=== PATIENT | male | born 1965 | race Caucasian/White ===

== ENCOUNTER 2017-08-25 17:15 | Inpatient (IN) | payer OTHER, SELFPAY ==
[2017-08-25] MEDS ORDERED: Pantoprazole 40 MG VIAL ONE (17:43)
[2017-08-25 17:49] LABS: #Basophils 0.1 thou/uL (0.0-0.2); #Eosinphils 0.1 thou/uL (0.0-0.7); #Lymphocytes 2.8 thou/uL (1.20-3.40); #Monocytes 0.6 thou/uL (0.11-0.59); #Neutrophils 5.7 thou/uL (1.40-6.50); %Basophils 0.9 % (0.0-1.0); %Eosinophils 1.5 % (0.0-10.0); %Lymphocytes 29.7 % (21.0-51.0); %Monocytes 6.6 % (0.0-10.0); %Neutrophils 61.3 % (42.0-75.0); Hemoglobin 9.5 g/dL (14.0-18.0); Mean Corpuscular HGB CONC 34.5 g/dL (32.0-36.0); Mean Corpuscular Hemoglobin 30.3 pg (27.0-31.0); Mean Corpuscular Volume 87.8 fL (78.0-98.0); Mean Platelet Volume 8.1 fL (7.4-10.4); Platelet Count 217 thou/uL (130-400); RBC Distribution Width 12.3 % (11.5-14.5); Red Blood Cell (RBC) Count 3.15 mill/uL (4.70-6.10); White Blood Cell (WBC) Count 9.3 thou/uL (4.8-10.8)
[2017-08-25 17:55] LABS: PTT 28.4 SEC (22.9-36.1); Prothrombin Time 13.4 SEC (12.0-14.7)
[2017-08-25 18:00] LABS: ALT (SGPT) 7 U/L (8-55); AST (SGOT) 10 U/L (5-34); Albumin 3.7 g/dL (3.5-5.0); Alkaline Phosphatase 95 U/L (40-150); Anion Gap 13 mmol/L (10-20); BUN (Urea Nitrogen) 14 mg/dL (8.4-25.7); Bilirubin, Total 0.3 mg/dL (0.2-1.2); Calc. Creatinine Clearance 0 mL/min (70-130); Carbon Dioxide 24 mmol/L (22-29); Chloride 105 mmol/L (98-107); Estimated GFR-MDRD Greater than 90; Globulin 2.4 g/dL (2.4-3.5); Glucose 106 mg/dL (70-105); Potassium 3.7 mmol/L (3.5-5.1); Protein, Total 6.1 g/dL (6.0-8.3); Sodium 138 mmol/L (136-145)
[2017-08-25] MEDS ORDERED: Morphine 4 MG/ML Carpuject ONE (18:45)
[2017-08-25] MEDS ORDERED: Ondansetron HCl/PF 4 MG/2 ML Vial ONE (18:45)
--- NOTE | 2017-08-25 19:18 | RAD ---
ACUTE ABDOMINAL SERIES: 08/25/17 INDICATION: Abdominal pain. IMPRESSION: No acute cardiopulmonary abnormality is evident. No pneumoperitoneum is evident. No obstruction is no mari. There is a mild amount of retained stool. There is scattered degenerative change. COMMENTS: The exam is compared to a prior dated 01/12/06. Bowel gas pattern is nonspecific without overt evidence of obstruction. There is mild amount of retai riley stool predominantly within the right hemicolon. No suspicious calcifications are evident. The car diomediastinal silhouette is normal appearing. No pleural effusion, pneumothorax is evident. No pneum operitoneum is demonstrated. POS: [facility]
[2017-08-25 21:53] LABS: Hemoglobin 8.7 g/dL (14.0-18.0)
[2017-08-25] MEDS ORDERED: Dextrose 5 %-0.45 % NaCl 1,000 ML IV SCH (23:11)
[2017-08-25] MEDS ORDERED: Ondansetron HCl/PF 4 MG/2 ML Vial IVP PRN ×2 (23:11→23:55)
[2017-08-25] MEDS ORDERED: Pantoprazole 80 MG, Admixture Fee 1 EACH in Sodium Chloride 0.9% 100 ML IVP SCH (23:15)
--- NOTE | 2017-08-25 23:51 | PDOC.EVN ---
Event Note - Event Note Event Note: In review of the patients records he had a CT scan of the Chest Dissection protocol which demonstrated a nodule in the right and left fissure of the lungs. I informed him of this finding, and that he should have a follow-up CT scan of the chest.
[2017-08-25] MEDS ORDERED: hydrALAZINE 20 MG/ML VIAL SLOW IVP PRN (23:55)
[2017-08-26] MEDS: Dextrose 5 %-0.45 % NaCl 1,000 ML IV SCH ×3 (00:19→19:50)
[2017-08-26] MEDS: Pantoprazole 80 MG in Sodium Chloride 0.9% 100 ML IVP SCH ×3 (00:41→20:41)
--- NOTE | 2017-08-26 05:17 | HP ---
PRIMARY CARE PHYSICIAN: The patient does not have a primary care physician. CHIEF COMPLAINT: Abdominal pain and vomiting. HISTORY OF PRESENT ILLNESS: Mr. Lazcano is a pleasant 52-year-old gentleman that has a history of cor onary artery disease and hypertension. He was in his usual state of health until a few days ago, he says he was picking up some heavy stuff and got extremely hot and felt extremely tired. He says he t hought he should try to eat something to see if this would make him feel better. He says he believes he ate something that did not agree with him and then shortly after eating, he started getting sever e abdominal cramping and pain and then started to throw up some dark black looking stuff then he also started having diarrhea, which he says was dark and tarry looking. He says that the pain was crampi ng. It was surrounding his abdomen going all the way around his side. He says it felt like somebody was wrapping him around his spine and ripping apart. He said the pain was constant and he also star mari feeling dizzy and lightheaded and for this reason, he came to the emergency room for evaluation. In the ER, he was found to be guaiac positive and he also had a hemoglobin which was lower than his normal. For this reason, he is being admitted for further evaluation. The patient does admit that glenda lorenzana has been taking quite a few BC powders several times a day for pain. Otherwise, he is not on any o ther medications. He says he has a history of heart disease, but he says he lost a lot of weight and as a result, he was "taken off all other medications." REVIEW OF SYSTEMS: All systems were reviewed and negative except for that mentioned in the history o f present illness. PAST MEDICAL HISTORY: Significant for coronary artery disease, hypertension, gastroesophageal reflux disease, hyperlipidemia, and depression. PAST SURGICAL HISTORY: He had a right total knee replacement and a coronary stent placed. ALLERGIES: No known drug allergies. SOCIAL HISTORY: He is , has 3 children. He works as a sand plaster. He smokes about a pack a day for 10 years. Denies any alcohol use. FAMILY HISTORY: Significant for heart disease in his father. Mother had kidney failure. CURRENT MEDICATIONS: Include BC powder. PHYSICAL EXAMINATION: GENERAL: He is alert and oriented. He appears to be in no acute distress. He is well developed and well nourished. VITAL SIGNS: Blood pressure was 140/76, heart rate 83, respiratory rate of 18, temperature 97.8, O2 sat was 99% on room air. HEENT: Pupils are equal, round, and reactive. Extraocular muscles are intact. Sclerae are anicteri c. Throat, no erythema, no exudates. NECK: No adenopathy, no bruits. LUNGS: Clear to auscultation. There is no wheezing, no rales. CARDIOVASCULAR: He has a normal S1, S2. There is no S3 or S4. No murmurs, clicks, no rubs. ABDOMEN: Soft. He has got some mild diffuse tenderness primarily in the mid abdomen. There was no rebound, no guarding, no organomegaly. EXTREMITIES: There is no clubbing, cyanosis, no edema. NEUROLOGIC: Nonfocal with no muscle weakness. SKIN AND INTEGUMENT: There are no skin changes. No rash. LABORATORY RESULTS: White blood cell count 9.3, hemoglobin 9.5, hematocrit is 27.7, platelet count i s 217. INR is 1.0. Chemistry: Sodium 138, potassium 3.7, chloride is 105, CO2 is 24, BUN of 14, cr eatinine 0.8, glucose is 106. Lipase was 14. He had an abdominal series in the ER showing nonspecif ic bowel gas pattern with no evidence of obstruction. ASSESSMENT AND PLAN: This is a pleasant 52-year-old gentleman who presents to the emergency room wit h severe abdominal pain. He had vomiting of blood as well as some dark stools. This is all concerni ng for an upper GI bleed. He may also have an acute blood loss anemia as well. He will be admitted and started on IV Protonix drip as well as some IV fluid resuscitation. Antiemetics as needed. He w ill be left n.p.o. after midnight and we will consult Gastroenterology for further recommendations. Currently, his vital signs are stable.
[2017-08-26 05:46] LABS: #Eosinphils 0.2 thou/uL (0.0-0.7); #Lymphocytes 2.9 thou/uL (1.20-3.40); #Monocytes 0.4 thou/uL (0.11-0.59); #Neutrophils 3.1 thou/uL (1.40-6.50); %Basophils 0.7 % (0.0-1.0); %Eosinophils 2.8 % (0.0-10.0); %Lymphocytes 43.5 % (21.0-51.0); %Monocytes 6.3 % (0.0-10.0); %Neutrophils 46.7 % (42.0-75.0); Hemoglobin 7.9 g/dL (14.0-18.0); Mean Corpuscular HGB CONC 35.1 g/dL (32.0-36.0); Mean Corpuscular Volume 91.1 fL (78.0-98.0); Mean Platelet Volume 7.8 fL (7.4-10.4); Platelet Count 163 thou/uL (130-400); Red Blood Cell (RBC) Count 2.46 mill/uL (4.70-6.10); White Blood Cell (WBC) Count 6.7 thou/uL (4.8-10.8)
[2017-08-26 08:28] LABS: Iron 43 ug/dL (65-175); Iron Binding Capacity, Total 195 mcg/dL (261-462)
[2017-08-26] MEDS ORDERED: Fentanyl 100 MCG/2 ML VIAL ONE (13:17)
[2017-08-26] MEDS ORDERED: GoLYTELY 4,000 ml Bottle PO SCH ×2 (13:30→18:00)
--- NOTE | 2017-08-26 13:33 | OP ---
DATE OF PROCEDURE: 08/26/2017 SURGEON: Bartolo Marmolejo M.D. OPERATIVE PROCEDURE: Esophagogastroduodenoscopy with biopsy. PREOPERATIVE DIAGNOSES: History of coffee ground vomiting and also history of black tarry stool. Al so, history of weight loss of 80 pounds over the last 6 months. POSTOPERATIVE DIAGNOSES: 1. Large ulcer at the GE junction, distal esophagus, esophagitis. 2. Shallow ulcer, gastric antrum, gastritis. At time of endoscopy, no active bleeding seen. PROCEDURE NOTE: The patient was placed on his left lateral position and was given sedation by Anesth esia Department. A Pentax video gastroscope under direct vision was passed down the oropharynx to th e GE junction, into the stomach and subsequently into descending duodenum. Over the lower third of t he esophagus and GE junction the patient found to have a large ulceration with ____ 6. He also esoph agitis. Upon entering the stomach, the scope was retroflexed to view the fundus and cardia. No lesi ons seen in the fundus and cardia of the stomach. The gastric body, no pathology seen. The gastric antrum showed ulceration. The ulcer was nonbleeding. The ulcer ____ more bleeding. He also has ant ral gastritis. The duodenal bulb, descending duodenum, no pathology seen. Biopsy from the gastric b jose and gastric antrum. Also, biopsies of this distal esophagus. The stomach was decompressed and t he scope removed. RECOMMENDATIONS: 1. Continue Protonix. 2. Clear liquid diet today and will plan for colonoscopy tomorrow.
[2017-08-26] MEDS ORDERED: Promethazine HCl 25 MG/ML VIAL IM PRN (13:34)
[2017-08-26] MEDS ORDERED: Ondansetron HCl/PF 4 MG/2 ML Vial IVP PRN (13:34)
[2017-08-26] MEDS ORDERED: Promethazine HCl 25 MG/ML VIAL SLOW IVP PRN (13:34)
--- NOTE | 2017-08-26 13:35 | PDOC.PN ---
- Subjective Encounter Start Date: 08/26/17 Encounter Start Time: 10:30 Patient seen and examined for GI bleeding. No new melena or hematochezia. No overnight events. NPO. On Protonix drip - Objective Resuscitation Status: Resuscitation Status FULL:Full Resuscitation MAR Reviewed: Yes Vital Signs & Weight: Vital Signs (12 hours) Temp Pulse Resp BP Pulse Ox 08/26/17 11:27 97.6 F 81 16 108/59 L 98 08/26/17 07:51 98 F 91 16 99 08/26/17 07:36 98 F 91 16 117/65 99 08/26/17 04:00 98.0 F 90 18 109/64 97 Weight Admit Weight 201 lb 1.6 oz Weight 201 lb 1.6 oz I&O: 08/25/17 08/26/17 08/27/17 06:59 06:59 06:59 Intake Total 1005 Balance 1005 Result Diagrams: 08/26/17 16:00 08/25/17 17:30 EKG Reviewed by me: Yes (Tele SR) Phys Exam - Physical Examination Constitutional: NAD Respiratory: no wheezing, no rhonchi Cardiovascular: RRR, no rub Gastrointestinal: soft, non-tender, positive bowel sounds Musculoskeletal: no edema Neurological: moves all 4 limbs Psychiatric: A&O x 3 Dx/Plan (1) GI bleed due to NSAIDs Code(s): K92.2 - GASTROINTESTINAL HEMORRHAGE, UNSPECIFIED; T39.395A - ADVERSE EFFECT OF NONSTEROIDAL ANTI-INFLAMMATORY DRUGS, INIT Status: Acute (2) Abdominal pain Code(s): R10.9 - UNSPECIFIED ABDOMINAL PAIN Status: Acute (3) Acute blood loss anemia Code(s): D62 - ACUTE POSTHEMORRHAGIC ANEMIA Status: Acute (4) Weight loss Status: Chronic - Plan cont current plan of care, DVT proph w/SCDs Check iron profile -: EGD today -: Cont Protonix drip -: Monitor Review of Systems - Review of Systems Cardiovascular: negative: chest pain, palpitations, orthopnea, paroxysmal nocturnal dyspnea, edema, light headedness, other - Medications/Allergies Allergies/Adverse Reactions: Allergies Allergy/AdvReac Type Severity Reaction Status Date / Time No Known Allergies Allergy Verified 08/25/17 22:26 Medications: Current Medications Fentanyl (Pacu-Sublimaze) 50 mcg SLOW IVP Q10MIN PRN PRN Reason: Moderate to Severe Pain (6-10) Stop: 08/26/17 16:34 Hydralazine HCl (Apresoline) 10 mg SLOW IVP Q4H PRN PRN Reason: Systolic BP > 180 Dextrose/Sodium Chloride (D5 1/2 Ns) 1,000 mls @ 100 mls/hr IV .Q10H [facility] Last Admin: 08/26/17 09:51 Dose: 1,000 mls Pantoprazole Sodium 80 mg/ (Sodium Chloride) 100 mls @ 10 mls/hr IVP INF [facility] Last Admin: 08/26/17 09:51 Dose: 100 mls Ondansetron HCl (Zofran) 4 mg IVP Q6H PRN PRN Reason: Nausea/Vomiting Ondansetron HCl (Pacu-Zofran) 4 mg IVP ONE PRN PRN Reason: Nausea/Vomiting Stop: 08/26/17 16:34 Polyethylene Glycol/Electrolytes (Golytely) 4,000 ml PO ONE [facility] Polyethylene Glycol/Electrolytes (Golytely) 4,000 ml PO ONE [facility] Promethazine HCl (Pacu-Phenergan) 6.25 mg SLOW IVP ONE PRN PRN Reason: Nausea/Vomiting Stop: 08/26/17 16:34 Promethazine HCl (Pacu-Phenergan) 6.25 mg IM ONE PRN PRN Reason: Nausea/Vomiting Stop: 08/26/17 16:34 Sodium Chloride (Flush - Normal Saline) 10 ml IVF Q12HR [facility] Last Admin: 08/26/17 09:50 Dose: Not Given Sodium Chloride (Flush - Normal Saline) 10 ml IVF PRN PRN PRN Reason: Saline Flush
--- NOTE | 2017-08-26 13:55 | CON ---
DATE OF CONSULTATION: 08/26/2017 REFERRING PHYSICIAN: Dr. Elvis Tee, [facility]. REASON FOR CONSULTATION: Nausea, vomiting, and history of black tarry stool and also vomiting coffee -ground material. HISTORY OF PRESENT ILLNESS: Mr. Juanjose Poole is a 52-year-old male with history of hyperte nsion, chronic acid reflux, hyperlipidemia. He also has history of depression. The patient had not seen a primary care doctor in several years. The patient has seen Dr. Gallardo before in [place], but after that he has not seen a physician. He did not take medicines over the last several years. He a lso has had a coronary bypass graft and also right knee replaced in the past. He tells me he has not been to his primary care doctor for several years. He does not take any medicines for any other med ical problems. The patient has been taking some BC powder on a regular basis 2-3 times a day for sev eral days because of headache. The patient developed some nausea and vomiting and vomited coffee-flo und material and also had some black tarry stool. He has multiple loose stools. The stools are cedrick y. The patient had abdominal pain and also which is poorly localized. There is no prior history of peptic ulcer. There is history of chronic acid reflux. The patient tells me he had a colonoscopy a few years ago and had some polyps taken out. This was 5 years ago. He had no followup colonoscopy. The patient came to the ER because of the above reason, was found to have anemia on admission. The admitting CBC shows WBC of 9300, hemoglobin 9.5, hematocrit 27.7 and dropping down to 7.9 today and _ ___ at 8. Hematocrit 23.5. Today, he has no nausea, vomiting, and also had no black tarry stool. T he patient tells me he used to weight about 287 pounds 6 months ago. He has lost 80 pounds in the 6 months. He says he does not feel like eating and was eating only a couple of meals a day. He a lso clinically takes BC powder and ____ time. The patient had no fever, night sweats. No history o f any chronic cough. He has no localizing symptoms for the weight loss. He has no relevant history. ALLERGIES: None. SOCIAL HISTORY: The patient is . He works as a sandblaster. He quit smoking several years a go. He said lately drinks alcohol. No history of drug abuse. MEDICAL ILLNESSES: 1. Hypertension. 2. Hyperlipidemia. 3. Chronic acid reflux. 4. Depression. 5. History of coronary bypass graft 4 years ago. 6. History of right knee replacement. FAMILY HISTORY: No family history of renal cell malignancy. No family history of any heart disease, CVA, etc. HOME MEDICATIONS: None as per the patient except for BC powder. REVIEW OF SYSTEMS: A 10-point system review. CONSTITUTIONAL: History of weight loss of 80 pounds. No history of any change in activity tolerance . No history of any fever, night sweats. RESPIRATORY: No history of chronic cough, hemoptysis, dyspnea. CARDIOVASCULAR: No chest pain, no palpitation, no dyspnea, orthopnea or PND. GASTROINTESTINAL: As in history of present illness. GENITOURINARY: No dysuria, hematuria or frequency of urination. MUSCULOSKELETAL/ENDOCRINE/HEMATOLOGICAL/NEUROPSYCH: Not relevant. PHYSICAL EXAMINATION: GENERAL: The patient appears very comfortable in no acute distress. He is awake, alert, oriented to time, place and person. VITAL SIGNS: He is afebrile. Pulse is 81, blood pressure 108/59. HEENT: Conjunctivae clear. NECK: Supple. No adenitis or thyromegaly noted. CARDIOVASCULAR: First and second heart sounds normal. LUNGS: Clear to auscultation. ABDOMEN: Soft. The abdomen is nondistended. Although he comes with abdominal pain, the belly is ve ry benign and is actually nontender on physical exam. There is no organomegaly. EXTREMITIES: Reveal no edema. LABORATORY: CBC on admission WBC 9300, hemoglobin 9.5, hematocrit 27.7, platelet count 217,000, poly morphs 61, lymphocytes 29%. Today, the hemoglobin is 8, hematocrit 23.5. Chem-7; sodium 138, potass ium 3.7, chloride 105, bicarbonate 24, BUN is 14, creatinine is 0.80, glucose 106, calcium 9. Iron i s 43, TIBC is 195, more suggestive of anemia of chronic disease than iron deficiency. AST 10, ALT 7 , alkaline phosphatase 95, albumin 3.7, lipase 14. CLINICAL IMPRESSION: 1. A 52-year-old male with black tarry stool and also history of coffee ground vomiting. The patient most likely has upper gastrointestinal bleeding to account for the above symptoms. Howev er, he says he has history of weight loss of 80 pounds over the last 6 months. He has had a colonosc opy in the past and removed polyps. He has really no localizing symptoms of weight loss. 2. Hypertension. 3. Hyperlipidemia. 4. Chronic acid reflux. 5. Depression. 6. Status post coronary bypass graft. 7. Status post right knee replacement. RECOMMENDATIONS: 1. Continue IV Protonix. 2. Follow up H&H and transfuse p.r.n. 3. EGD later on today. I believe he should also have a colonoscopy before discharge because of the weight loss and also past history of colon polyp.
[2017-08-26] MEDS ORDERED: PROPOFOL 200 MG/20 ML VIAL ONE (14:12)
[2017-08-26] MEDS ORDERED: Lidocaine 1% PF 5 ML VIAL ONE (14:12)
[2017-08-27 05:18] LABS: Anion Gap 9 mmol/L (10-20); BUN (Urea Nitrogen) 6 mg/dL (8.4-25.7); Calc. Creatinine Clearance 151 mL/min (70-130); Calcium 8.3 mg/dL (7.8-10.44); Carbon Dioxide 27 mmol/L (22-29); Chloride 109 mmol/L (98-107); Estimated GFR-MDRD Greater than 90; Glucose 103 mg/dL (70-105); Potassium 3.6 mmol/L (3.5-5.1); Sodium 141 mmol/L (136-145)
[2017-08-27 05:32] LABS: Hemoglobin 7.7 g/dL (14.0-18.0)
[2017-08-27] MEDS: Dextrose 5 %-0.45 % NaCl 1,000 ML IV SCH ×4 (09:07→18:09)
[2017-08-27] MEDS ORDERED: Ondansetron HCl/PF 4 MG/2 ML Vial IVP PRN (10:59)
[2017-08-27] MEDS ORDERED: Promethazine HCl 25 MG/ML VIAL SLOW IVP PRN (10:59)
[2017-08-27] MEDS ORDERED: Promethazine HCl 25 MG/ML VIAL IM PRN (10:59)
[2017-08-27] MEDS ORDERED: ISOVUE-370 76%-LOCM 1 ML ONE (12:37)
[2017-08-27] MEDS ORDERED: PROPOFOL 200 MG/20 ML VIAL ONE (13:08)
[2017-08-27] MEDS ORDERED: Lidocaine 1% PF 5 ML VIAL ONE (13:08)
--- NOTE | 2017-08-27 16:05 | OP ---
DATE OF PROCEDURE: 08/27/2017 OPERATIVE PROCEDURE: Colonoscopy. PREOPERATIVE DIAGNOSES: Anemia, GI bleeding. He also has history of colon polyp. POSTOPERATIVE DIAGNOSIS: Normal colonoscopy except for hypertrophic anal papilla. PROCEDURE IN DETAIL: The patient was placed on his left lateral position and was given sedation by A nesthesia Department. A rectal exam was done before the scope was advanced into the rectum. No lesi on felt on rectal exam. A Pentax video colonoscope was introduced into the rectum and advanced all t he way into the cecum. The prep was fairly good. The patient did have some fecal coating of the muc syeda throughout the colon. Water was irrigated and washed out. There is some old blood seen in the c olon, but no fresh bleeding seen. The appendical opening, ileocecal valve and cecum, no pathology se en. Withdrawal of scope from cecum to ascending colon, hepatic flexure, no pathology seen. The trujillo sverse colon, splenic flexure, descending colon, sigmoid colon, no lesions seen. Retroflexion of sco pe in the rectum showed hypertrophic anal papilla. RECOMMENDATIONS: Based on the endoscopic findings, I believe he has had upper GI bleeding most likel y from the ulcer of the GE junction and distal esophagus. At the time of endoscopy, no fresh blood s een in the . RECOMMENDATIONS: 1. Regular diet. 2. If he is stable, he can be discharged home on some Protonix 40 once a day.
[2017-08-27 17:45] LABS: Hemoglobin 10.5 g/dL (14.0-18.0)
--- NOTE | 2017-08-27 19:42 | PDOC.PN ---
- Subjective Encounter Start Date: 08/27/17 Encounter Start Time: 19:[address] for [address] abd. Had small amount of BRBPR last night per RN. - Objective Resuscitation Status: Resuscitation Status FULL:Full Resuscitation MAR Reviewed: Yes Vital Signs & Weight: Vital Signs (12 hours) Temp Pulse Resp BP BP Pulse Ox 08/27/17 19:22 98.1 F 78 20 160/77 H 98 08/27/17 10:40 97.6 F 79 18 98 08/27/17 10:35 97.9 F 78 16 133/83 93 L 08/27/17 08:00 97.6 F 79 18 79 L 08/27/17 07:54 97.6 F 79 18 130/60 98 Weight Admit Weight 201 lb 1.6 oz Weight 198 lb 4.8 oz I&O: 08/26/17 08/27/17 08/28/17 06:59 06:59 06:59 Intake Total 1005 6978 3550 Balance 1005 6978 3550 Result Diagrams: 08/27/17 17:35 08/27/17 04:34 Dx/Plan - Plan DVT proph w/SCDs IMPRESSION 1. GI bleed due to PUD s/p EGD & Colonoscopy 2. Abdominal pain due to # 1 3. Acute blood loss anemia s/p PRBC 4. Weight loss 5. Chronic NSAID use 6. h/o Celiac artery origin stenosis - Probably the cause of chronic weight loss PLAN: -CTA abdomen and pelvis per GI recommendation -Transfuse PRBC if HH <7 -Cont Protonix -Monitor HH -Vitals Q4h -Orthostatic Vitals QAM -Cont IVF to prevent contrast induced nephropathy Review of Systems - Medications/Allergies Allergies/Adverse Reactions: Allergies Allergy/AdvReac Type Severity Reaction Status Date / Time No Known Allergies Allergy Verified 08/25/17 22:26 Medications: Current Medications Hydralazine HCl (Apresoline) 10 mg SLOW IVP Q4H PRN PRN Reason: Systolic BP > 180 Pantoprazole Sodium 80 mg/ (Sodium Chloride) 100 mls @ 10 mls/hr IVP INF [facility] Last Admin: 08/26/17 20:41 Dose: 100 mls Dextrose/Sodium Chloride (D5 1/2 Ns) 1,000 mls @ 75 mls/hr IV .[id number] [facility] Last Admin: 08/27/17 18:09 Dose: 1,000 mls Ondansetron HCl (Zofran) 4 mg IVP Q6H PRN PRN Reason: Nausea/Vomiting Sodium Chloride (Flush - Normal Saline) 10 ml IVF Q12HR [facility] Last Admin: 08/27/17 09:07 Dose: Not Given Sodium Chloride (Flush - Normal Saline) 10 ml IVF PRN PRN PRN Reason: Saline Flush
[2017-08-28 04:43] LABS: Hemoglobin 9.6 g/dL (14.0-18.0)
[2017-08-28 04:58] LABS: Anion Gap 11 mmol/L (10-20); BUN (Urea Nitrogen) 6 mg/dL (8.4-25.7); Calc. Creatinine Clearance 136 mL/min (70-130); Calcium 8.3 mg/dL (7.8-10.44); Carbon Dioxide 25 mmol/L (22-29); Chloride 109 mmol/L (98-107); Estimated GFR-MDRD Greater than 90; Glucose 118 mg/dL (70-105); Potassium 3.5 mmol/L (3.5-5.1); Sodium 141 mmol/L (136-145)
[2017-08-28] MEDS: Dextrose 5 %-0.45 % NaCl 1,000 ML IV SCH (06:24)
--- NOTE | 2017-08-28 08:58 | CT ---
CTA CHEST 08/27/17 HISTORY: Weight loss. History of celiac stenosis. Contrast enhanced CTA of the abdominal aorta is performed. 2D and 3D reconstructed images on an [employer] 3D workstation. Comparison made to a previous exam from 04/10/16. CTA images demonstrates the lung bases to be unremarkable. The liver and spleen are unremarkable. The gallbladder is partially contracted. The pancreas is unrem arkable. Adrenal glands and kidneys are unremarkable. The abdominal aorta is unremarkable. Again, origin celiac artery stenosis is seen unchanged since the previous exam. The superior mesenteric artery is patent. The inferior mesenteric artery is also flores nt. The renal arteries are patent. No dilated loops of small bowel seen. A normal appendix is seen. Small descending colonic diverticula are present. Multilevel lumbar changes of short congenital pedicles seen. No other significant osseous lesions see n. A small umbilical hernia is also present. IMPRESSION: 1. Congenitally short pedicles. 2. Origin celiac artery stenosis unchanged since the previous exam. POS: [facility]
[2017-08-28] MEDS ORDERED: Acetaminophen 325 MG TAB PO PRN (13:02)
[2017-08-28] MEDS ORDERED: hydrALAZINE 20 MG/ML VIAL SLOW IVP PRN (13:02)
--- NOTE | 2017-08-28 13:06 | PDOC.PN ---
- Subjective Encounter Start Date: 08/28/17 Encounter Start Time: 11:30 Patient seen and examined for GI bleeding. No new complaints. No new Melena/ Hematochezia. No overnight events - Objective Resuscitation Status: Resuscitation Status FULL:Full Resuscitation MAR Reviewed: Yes Vital Signs & Weight: Vital Signs (12 hours) Temp Pulse Resp BP BP BP Pulse Ox 08/28/17 08:00 98.0 F 80 16 134/79 130/78 141/81 H 97 08/28/17 07:39 98.0 F 80 16 97 08/28/17 04:00 98.6 F 75 20 138/75 97 Weight Admit Weight 201 lb 1.6 oz Weight 212 lb 4 oz I&O: 08/27/17 08/28/17 08/29/17 06:59 06:59 06:59 Intake Total 6978 4550 Balance 6978 4550 Result Diagrams: 08/28/17 04:23 08/28/17 04:23 Phys Exam - Physical Examination Constitutional: NAD Respiratory: no wheezing, no rhonchi Cardiovascular: RRR, no rub Gastrointestinal: soft, positive bowel sounds mild gen tenderness, No rebound/guarding Musculoskeletal: no edema Neurological: non-focal, moves all 4 limbs Psychiatric: A&O x 3 Dx/Plan - Plan DVT proph w/SCDs IMPRESSION 1. GI bleed due to PUD s/p EGD & Colonoscopy 2. Abdominal pain due to # 1 3. Acute blood loss anemia s/p PRBC 4. Weight loss 5. Chronic NSAID use 6. Celiac artery origin stenosis/Chronic Mesenteric ischemia/Weight loss with postprandial abd pain PLAN: GI following Await Vascular input Transfuse PRBC if HH <7 Change Protonix drip to PO BID HH if he starts bleeding DC IVF Review of Systems - Review of Systems Respiratory: negative: Cough, Dry, Shortness of Breath, Hemoptysis, SOB with Excertion, Pleuritic Pain, Sputum, Wheezing Cardiovascular: negative: chest pain, palpitations, orthopnea, paroxysmal nocturnal dyspnea, edema, light headedness, other - Medications/Allergies Allergies/Adverse Reactions: Allergies Allergy/AdvReac Type Severity Reaction Status Date / Time No Known Allergies Allergy Verified 08/25/17 22:26 Medications: Current Medications Acetaminophen (Tylenol) 650 mg PO Q4H PRN PRN Reason: Headache/Fever or Mild Pain Hydralazine HCl (Apresoline) 10 mg SLOW IVP Q4H PRN PRN Reason: SBP Greater Than 180 Ondansetron HCl (Zofran) 4 mg IVP Q6H PRN PRN Reason: Nausea/Vomiting Pantoprazole Sodium (Protonix) 40 mg PO BID [facility] Last Admin: 08/28/17 09:04 Dose: Not Given Sodium Chloride (Flush - Normal Saline) 10 ml IVF Q12HR [facility] Last Admin: 08/28/17 09:02 Dose: 10 ml Sodium Chloride (Flush - Normal Saline) 10 ml IVF PRN PRN PRN Reason: Saline Flush
--- NOTE | 2017-08-28 13:58 | PRG ---
DATE OF SERVICE: 08/28/2017 SUBJECTIVE: This is a 52-year-old male with upper gastrointestinal bleeding and underwent EGD and colonoscopy. The colonoscopy was basically negative. The EGD showed an ulceration of the GE junction and also another ulcer in the distal esophagus. He also had esophagitis. The patient has a history of abdominal pain off and on and also has a history of weight loss of about 80 pounds. The patient apparently came to the ER in 02/2016 and was found to have what appears to be a significant celiac artery stenosis. Unfortunately, this was not followed up. The patient's had a CAT scan report from 02/2016. This was reviewed and does show celiac artery stenosis. The patient also compl ained of abdominal pain off and on and has been losing weight. It appears that he has ischemic bowel disease. PHYSICAL EXAMINATION: GENERAL: Appears comfortable, afebrile. VITAL SIGNS: Stable. CARDIOVASCULAR: Lungs within normal limits. ABDOMEN: Soft to palpate. No organomegaly. No tenderness. No mass. LABORATORY DATA: Hemoglobin today is 9.6, hematocrit is 27. RECOMMENDATION: 1. Vascular Surgery consult for possibly either a bypass or stent placement. 2. Continue Protonix.
--- NOTE | 2017-08-29 08:06 | CON ---
DATE OF CONSULTATION: 08/29/2017 HISTORY OF PRESENT ILLNESS: Mr. Lazcano is a 52-year-old gentleman, who was admitted with GI bleed. He has undergone upper and lower endoscopy revealing nonbleeding ulcers in his stomach. He has not h ad any further bleeding. His hemoglobin has stabilized at 9.6. It had a jada of 7.7. Noted on his initial workup with a CT scan performed in 2017 showing a celiac stenosis at the origin of the stacia c artery. CT scan was repeated this admission, which again shows a celiac artery origin stenosis, wh ich is unchanged from 04/10/2016. This was reported as severe in 2017, but by my view, this is a lissa y difficult stenotic area to even visualize. He has a widely patent large SMA and ALICIA. The patient, when he presented, complained that he has had bloating with food. He has no food avoida nce. He does not have symptoms typical of intestinal angina. He does continue to smoke. He has not had any further melenic stool. His weight is 212 pounds. PAST MEDICAL HISTORY: 1. Tobacco abuse. 2. Coronary artery disease. 3. Hypertension. 4. Gastroesophageal reflux disease. 5. Hyperlipidemia. 6. Depression. 7. Peptic ulcer disease. PAST SURGICAL HISTORY: Right total knee replacement and a coronary stent. ALLERGIES: None. SOCIAL HISTORY: He smokes a pack a day. He has 3 children. He is and he is accompanied by his today. MEDICATIONS AT HOME: BC Powder. PHYSICAL EXAMINATION: GENERAL: This is a well-developed, well-nourished man, sleeping when I walked in. There is an empty tray of food sitting next to his bed. NECK: Supple. He has no carotid bruits. CHEST: Clear bilaterally. HEART: Rhythm is regular, without murmur. ABDOMEN: Soft, nontender. EXTREMITIES: There is no edema. ASSESSMENT AND PLAN: Gastrointestinal bleed, which has apparently spontaneously stopped. He has bee n scoped by Dr. Marmolejo and has healed or nonbleeding gastric ulcer/peptic ulcers. The concern over intestinal angina is unsounded in my opinion. The patient is tolerating food with o nly bloating-type symptoms. He has had no food avoidance or weight loss. He does not have abdominal pain typical for intestinal angina. He weighs 212 pounds and has an empty tray in his room. I have reassured the patient that with a widely patent SMA and ALICIA, even if he had a completely occlu ded celiac artery, I would not be overly concerned with intestinal angina. He has currently no sympt omatology suggestive of intestinal angina.
[2017-08-29 12:18] VITALS: BMI 30.4
--- NOTE | 2017-08-29 12:41 | PDOC.PN ---
- Subjective Encounter Start Date: 08/29/17 Encounter Start Time: 11:00 Patient seen and examined for multiple medical issues. No new complaints. No overnight events - Objective Resuscitation Status: Resuscitation Status FULL:Full Resuscitation MAR Reviewed: Yes Vital Signs & Weight: Vital Signs (12 hours) Temp Pulse Resp BP BP Pulse Ox 08/29/17 08:00 98.0 F 73 16 99 08/29/17 07:37 98.0 F 73 16 165/97 H 99 08/29/17 03:57 98 F 82 18 138/77 99 Weight Admit Weight 201 lb 1.6 oz Weight 212 lb 4 oz I&O: 08/28/17 08/29/17 08/30/17 06:59 06:59 06:59 Intake Total 4550 2430 Balance 4550 2430 Result Diagrams: 08/28/17 04:23 08/28/17 04:23 Radiology Reviewed by me: Yes (CTA abd - reviewed) Phys Exam - Physical Examination Constitutional: NAD Respiratory: no wheezing, no rhonchi Cardiovascular: RRR, no rub Gastrointestinal: soft, positive bowel sounds mild abd discomfort Musculoskeletal: no edema Neurological: moves all 4 limbs Dx/Plan - Plan out of bed/ambulate, DVT proph w/SCDs IMPRESSION 1. GI bleed due to PUD s/p EGD & Colonoscopy - no new episodes 2. Abdominal pain due to # 1 3. Acute blood loss anemia s/p PRBC 4. Weight loss 5. Chronic NSAID use 6. h/o Lung nodule in 04/02 7. Tobacco dependence/ Chronic Celiac artery origin stenosis PLAN: Consult Pulmonary per patient request since patient is uninsured. He is worried about Lung cancer as a cause of weight loss. Case d/w Dr Villegas. Will avoid CT chest today since he received contrast bolus yesterday. Transfuse PRBC if HH <7 Cont Protonix drip to PO BID HH if he starts bleeding Vascular input appreciated RUQ ultrasound due to persistent dyspepsia (Patient cannot get this done as outpt due to financial reason) Review of Systems - Review of Systems Respiratory: negative: Cough, Dry, Shortness of Breath, Hemoptysis, SOB with Excertion, Pleuritic Pain, Sputum, Wheezing Cardiovascular: negative: chest pain, palpitations, orthopnea, paroxysmal nocturnal dyspnea, edema, light headedness, other - Medications/Allergies Allergies/Adverse Reactions: Allergies Allergy/AdvReac Type Severity Reaction Status Date / Time No Known Allergies Allergy Verified 08/25/17 22:26 Medications: Current Medications Acetaminophen (Tylenol) 650 mg PO Q4H PRN PRN Reason: Headache/Fever or Mild Pain Hydralazine HCl (Apresoline) 10 mg SLOW IVP Q4H PRN PRN Reason: SBP Greater Than 180 Ondansetron HCl (Zofran) 4 mg IVP Q6H PRN PRN Reason: Nausea/Vomiting Pantoprazole Sodium (Protonix) 40 mg PO BID [facility] Last Admin: 08/29/17 07:59 Dose: 40 mg Sodium Chloride (Flush - Normal Saline) 10 ml IVF Q12HR ORTEGA Last Admin: 08/29/17 07:59 Dose: 10 ml Sodium Chloride (Flush - Normal Saline) 10 ml IVF PRN PRN PRN Reason: Saline Flush
--- NOTE | 2017-08-29 14:53 | ULT ---
RIGHT UPPER QUADRANT ULTRASOUND: DATE: 08/29/17. HISTORY: Right upper quadrant abdominal pain. FINDINGS: Multiple longitudinal and transverse images of the right upper quadrant of the abdomen are obtained u sing a multihertz curvilinear transducer. Real-time, color flow, and spectral waveform Doppler tommy sis demonstrates the liver to be unremarkable with no evidence of masses or lesions. Normal hepatope pj flow is seen in the portal system. The common bile duct is of normal size measuring 3.5 mm. The gallbladder is unremarkable with no evidence of gallbladder sludge or wall thickening. The visualized portion of the pancreas is unremarkable. The right kidney is unremarkable. IMPRESSION: Normal right upper quadrant ultrasound. POS: H
--- NOTE | 2017-08-29 15:43 | CT ---
CT OF THE CHEST WIHTOUT CONTRAST: COMPARISON: 08/27/17. HISTORY: Pulmonary nodule TECHNIQUE: Multiple contiguous axial images were obtained in a CT of the chest without contrast. Coronal reform ats were performed. FINDINGS: There is a nodular opacity along the right minor fissure which may represent a small interstitial lym ph node measuring 9 mm in size. No other pulmonary nodules are seen. No pneumothorax or pleural eff usion are seen. There is a small calcification along the pleura of the left hemidiaphragm. The heart is normal in size. No hilar or mediastinal lymphadenopathy are appreciated on this limited noncontrast examination. The patient appears to have a stent in a left coronary artery. Degenerative changes are seen in the spine. The visualized subdiaphragmatic structures are unremarka ble. The chest wall soft tissues are unremarkable. IMPRESSION: No suspicious pulmonary nodule identified. POS: DEMETRIO
--- NOTE | 2017-08-29 22:20 | CON ---
DATE OF CONSULTATION: 08/29/2017 SERVICE: Pulmonary Medicine. REASON FOR CONSULTATION: Pulmonary nodule. HISTORY OF PRESENT ILLNESS: The patient is a 52-year-old white male with past medical history signif icant for a [id number] history of smoking. He does not have any dyspnea that limits his activity. He has lost about 100 pounds over the past year. He indicates that he has kind of an aversion for f ood. Whenever he eats, he has been having an increasingly bloated sensation. Ultimately, he started having hematemesis recently. He presented to the emergency department and was discovered to have se fany peptic ulcer disease. The bleeding has essentially stopped. He is tolerating p.o., and is bein g considered for transition out of the hospital. The patient is refusing to go because he once this pulmonary nodule to be addressed. This was identified on a CT dissection protocol in 03/2016. He salazar s had no additional imaging studies directed at that sense. He was in the hospital quite some time a go for a chest discomfort event. He was recommended to follow up for the pulmonary nodule and rememb ers this. That being said, he was lost to follow up because he is unfunded and relates that he did n ot have the money to see anybody. He denies any current fevers, chills, nausea or vomiting. He neve r has any hemoptysis. He is not having any night sweats. PAST MEDICAL HISTORY: 1. Coronary artery disease. 2. Hypertension. 3. Dyslipidemia. 4. Gastroesophageal reflux disease. 5. Peptic ulcer disease. 6. History of pulmonary nodule. 7. Major depressive disorder. PAST SURGICAL HISTORY: 1. Right total knee replacement. 2. Percutaneous coronary intervention. ALLERGIES: No known drug allergies. MEDICATIONS: List of his inpatient medications were reviewed. No specific updates were made. FAMILY HISTORY: Noncontributory. SOCIAL HISTORY: Negative for alcohol or illicit drug use. He has a 20-pack year history of smoking and also has exposure to silica. He has no exposure to asbestos or tuberculosis. He denies any illi cit drugs. REVIEW OF SYSTEMS: General, head, ears, eyes, nose, throat, cardiovascular, respiratory, GI, , mus culoskeletal, neurologic and skin is negative except as mentioned in the HPI. PHYSICAL EXAMINATION: VITAL SIGNS: Afebrile, pulse 85, respirations 20, saturation 98% on room air, blood pressure 158/89. HEENT: Normocephalic, atraumatic. Sclerae are white, conjunctivae pink. Oral and nasal mucosa is m oist without lesions. LUNGS: Decent air entry. There is no prolonged expiratory phase, wheezing, rhonchi or crackles. HEART: Normal rate, regular. ABDOMEN: Soft, nontender, nondistended. Bowel sounds are positive. MUSCULOSKELETAL: No cyanosis or clubbing. There is no pitting in the bilateral lower extremities. NEUROLOGIC: Grossly nonfocal. LABORATORY DATA: Hemoglobin 9.6. Basic metabolic profile is unremarkable. Liver function studies w ere previously normal. Lipase 14.0. IMAGING: CT of the chest demonstrates stable 9 mm pulmonary nodule in the right upper lobe. The pre viously noted fissure lesion is also present, but unchanged. ASSESSMENT: 1. Pulmonary nodule. 2. Tobacco abuse. 3. Silica exposure. 4. Upper gastrointestinal bleed secondary to peptic ulcer event. PLAN: From my perspective, the patient is stable for transition out of the hospital. He will need a repeat CT scan of the chest in 1 year so that we can document stability of this nodule for a period of 2 years. At this point, it has not changed in a significant fashion over a period of a year and a half. As such, it is very unlikely for this to represent any type of malignant process. I will rel ay the information to the patient tomorrow morning, but from my perspective, he is stable for transit ion home once his GI issue resolved.
--- NOTE | 2017-08-30 13:08 | DIS ---
DATE OF DISCHARGE: 08/30/2017 DISCHARGE DISPOSITION: Home. FOLLOWUP: Follow up with primary care physician at [facility] in 1 week[address] Follow up with Dr Armen Marmolejo, Gastroenterology, in 2 weeks. Please follow up on the gastric biopsy report. Primary care physician to provide refills on Protonix. DISCHARGE MEDICATIONS: Protonix 40 mg daily. The patient was seen on the day of discharge, denies any new complaints, no chest pain, shortness of breath, palpitations. BRIEF HOSPITAL COURSE: The patient is a 52-year-old male with hypertension, hyperlipidemia, coronary artery disease who presented to the hospital with abdominal pain along with coffee ground emesis. H e also had dark stools. He was admitted for GI bleeding. Please refer to the history and physical d ated 08/25/2017 for further details. The patient was admitted to the hospital with a diagnosis of GI bleeding. He was started on Protonix drip. Vital signs were monitored closely. His EGD showed large ulcer at the GE junction. Distal e sophagus with esophagitis. There was also some shallow ulceration in the gastric antrum with gastrit is. No active bleeding was seen. A colonoscopy was done next day that was negative except for hyper trophic anal papillae. He has been cleared by Gastroenterology for discharge. His H&H on admission was 9.5, lowest H&H was 7.7. He received 2 units of PRBC per Gastroenterology. The patient was evaluated in the emergency room in 2017 and was found to have pulmonary nodule as wel l as celiac artery origin stenosis. Per patient request he was evaluated by Vascular, Dr. Pradhan. Dr Armen Pradhan reassured the patient. No intervention is needed at this time since his SMA and ALICIA are wide ly patent. For lung nodule he was seen by Dr. Villegas. A CT scan of the chest, noncontrast, was repeated that s howed a pulmonary nodule that has been stable for a period of 2 years. He was advised to repeat a CT scan of the chest in 1 year or so. Tobacco cessation was extensively emphasized. FINAL DIAGNOSES: 1. Gastrointestinal bleeding secondary to peptic ulcer disease, esophagitis, gastritis, resolved. 2. Acute blood loss anemia, status post 2 units PRBC. 3. Weight loss of unclear etiology. 4. Abdominal pain secondary to #1. 5. Chronic NSAID use. Patient was advised to discontinue NSAIDs. 6. History of lung nodule. 7. Tobacco dependence. 8. Chronic celiac artery origin stenosis. 9. History of silica exposure. 10. Obesity with a BMI 30.5. SIGNIFICANT LABORATORIES: Iron profile showed iron of 43, TIBC 195. Ferritin 81.9. Stool for occult blood was positive.
--- NOTE | 2017-08-30 14:02 | PRG ---
DATE OF SERVICE: 08/30/2017 SERVICE: Pulmonary Medicine. INTERVAL HISTORY: The patient is doing fine from a respiratory standpoint. He denies any shortness of breath or chest discomfort. He had a CT of the chest yesterday. Otherwise, there were no overnig ht events. PHYSICAL EXAMINATION: VITAL SIGNS: Afebrile, pulse 80, blood pressure 159/98, respirations 16, saturation 97% on room air. GENERAL: The patient is awake, alert, in no apparent distress. LUNGS: Decent air entry with no prolonged expiratory phase, wheezing, rhonchi or crackles present. HEART: Normal rate, regular. ABDOMEN: Soft, nontender, nondistended. Bowel sounds are positive. MUSCULOSKELETAL: No cyanosis or clubbing. There is no pitting in the bilateral lower extremities. NEUROLOGIC: Grossly nonfocal. IMAGING: CT of the chest demonstrates stable pulmonary nodule. It is measuring 9 mm in size and has not significantly changed over the past year and a half. ASSESSMENT: 1. Pulmonary nodule, small. 2. Tobacco abuse. 3. Silica exposure. 4. Upper gastrointestinal bleed secondary to a peptic ulcer event. PLAN: I agree with Radiology's interpretation of this pulmonary nodule. It most likely represents a n intraparenchymal lymph node as it is in the correct distribution. That being said, it is measuring 9 mm and the patient is a high-risk patient. As such, a 1-year interval CT scan will be arranged. I will have the patient return to clinic at that time in the outpatient setting with a CT scan prior to the appointment to prove that this is nothing that we need to be too terribly concerned about. At this point, there are no ongoing requirements for inpatient Pulmonary or Critical Care opinion and I will sign off. Please call with additional questions or concerns moving forward.
[2017-08-30 14:38] VITALS: TEMP 97.8
[2017-08-30 15:05] VITALS: BP 158/92
== END 2017-08-30 14:45 | disposition home or self-care (01) | DRG 378 ==
LOC: SCSER 17:15 → 2SE 21:09 → T4-B 08-27 11:31
PROVIDERS: ADMIT Internal Medicine; ATTEND Internal Medicine
PROC: 0DB38ZX Excision of Lower Esophagus, Via Natural or Artificial Opening Endoscopic, Diagnostic (ICD-10-PCS; 2017-08-26)
PROC: 0DB68ZX Excision of Stomach, Via Natural or Artificial Opening Endoscopic, Diagnostic (ICD-10-PCS; 2017-08-26)
PROC: 30233N1 Transfusion of Nonautologous Red Blood Cells into Peripheral Vein, Percutaneous Approach (ICD-10-PCS; principal; 2017-08-27)
PROC: 0DJD8ZZ Inspection of Lower Intestinal Tract, Via Natural or Artificial Opening Endoscopic (ICD-10-PCS; 2017-08-27)
DX: K25.4 Chronic or unspecified gastric ulcer with hemorrhage (principal); I77.4 Celiac artery compression syndrome; D62 Acute posthemorrhagic anemia; I10 Essential (primary) hypertension; E78.5 Hyperlipidemia, unspecified; I25.10 Atherosclerotic heart disease of native coronary artery without angina pectoris; K20.9 Esophagitis, unspecified; K29.70 Gastritis, unspecified, without bleeding; R91.1 Solitary pulmonary nodule; E66.9 Obesity, unspecified; Z68.30 Body mass index [BMI] 30.0-30.9, adult; K21.9 Gastro-esophageal reflux disease without esophagitis; F32.9 Major depressive disorder, single episode, unspecified; Z96.651 Presence of right artificial knee joint; Z79.1 Long term (current) use of non-steroidal anti-inflammatories (NSAID); Z95.5 Presence of coronary angioplasty implant and graft; F17.210 Nicotine dependence, cigarettes, uncomplicated; T39.395A Adverse effect of other nonsteroidal anti-inflammatory drugs [NSAID], initial encounter; Y92.9 Unspecified place or not applicable; R63.4 Abnormal weight loss; Z82.49 Family history of ischemic heart disease and other diseases of the circulatory system
CPT/HCPCS: 36415; 36430; 71250; 74022; 74174; 76705; 80048; 80053; 82274; 82728; 83540; 83550; 83690; 83735; 85014; 85018; 85025; 85610; 85730; 86850; 86900; 86901; 88305; 88312; 88313; 96374; 96375; 96376; A4216; C9113; J2001; J2270; J2405; J2704; J3010; J7050; P9016

== ENCOUNTER 2020-06-03 14:50 | Outpatient (CLI) | payer BC | END 2020-06-03 14:51 | disposition home or self-care (01) | LOC: RAD-FRANK 14:50 | PROVIDERS: ATTEND Nurse Practitioner Family | DX: M54.2 Cervicalgia (principal); R22.1 Localized swelling, mass and lump, neck; E78.5 Hyperlipidemia, unspecified; I10 Essential (primary) hypertension; K42.9 Umbilical hernia without obstruction or gangrene; L04.9 Acute lymphadenitis, unspecified; Z95.5 Presence of coronary angioplasty implant and graft | CPT/HCPCS: 70360; 72040 ==

== ENCOUNTER 2020-06-13 12:28 | Outpatient (CLI) | payer BC ==
[2020-06-13] MEDS ORDERED: Iopamidol-370 76% 500 ML 1 ML ONE (15:16)
== END 2020-06-13 12:29 | disposition home or self-care (01) ==
LOC: BICCT 12:28
PROVIDERS: ATTEND Nurse Practitioner Family
DX: M54.2 Cervicalgia (principal); L04.9 Acute lymphadenitis, unspecified; R22.1 Localized swelling, mass and lump, neck; I65.22 Occlusion and stenosis of left carotid artery; E01.0 Iodine-deficiency related diffuse (endemic) goiter
CPT/HCPCS: 70491; Q9967

== ENCOUNTER 2020-08-11 10:12 | Outpatient (CLI) | payer BC ==
[2020-08-11 12:18] LABS: Anion Gap 18 mmol/L (10-20); BUN (Urea Nitrogen) 14 mg/dL (8.4-25.7); Calc. Creatinine Clearance 0 mL/min (70-130); Calcium 10.2 mg/dL (7.8-10.44); Carbon Dioxide 25 mmol/L (22-29); Chloride 102 mmol/L (98-107); Glucose 98 mg/dL (70-105); Potassium 4.6 mmol/L (3.5-5.1); Sodium 140 mmol/L (136-145)
[2020-08-11 12:35] LABS: #Basophils 0.1 10x3/uL (0.0-0.2); #Eosinphils 0.1 10x3/uL (0.0-0.5); #Monocytes 0.8 10x3/uL (0.0-1.1); %Basophils 0.6 % (0.0-2.0); %Eosinophils 0.9 % (0.0-6.0); %Lymphocytes 25.7 % (18.0-47.0); %Monocytes 6.2 % (0.0-10.0); %Neutrophils 66.3 % (40.0-75.0); Hemoglobin 15.3 g/dL (13.5-17.5); Mean Corpuscular HGB CONC 33.2 g/dL (32.0-36.0); Mean Corpuscular Volume 90.4 fl (81.2-95.1); Mean Platelet Volume 11.2 fl (7.4-10.4); Platelet Count 284 10x3/uL (150-450); RBC Distribution Width 13.4 % (11.5-14.5)
== END 2020-08-11 10:13 | disposition home or self-care (01) ==
LOC: LABBT 10:12
PROVIDERS: ATTEND Specialist
DX: Z01.812 Encounter for preprocedural laboratory examination (principal); K42.9 Umbilical hernia without obstruction or gangrene
CPT/HCPCS: 80048; 85025

== ENCOUNTER 2020-08-14 05:50 | Day surgery (SDC) | payer BC ==
[2020-08-13 11:44] VITALS: BMI 37.6
[2020-08-14] MEDS ORDERED: Ketorolac Tromethamine 30 MG/ML VIAL ONE (06:03)
[2020-08-14] MEDS ORDERED: Acetaminophen 500 MG TAB ONE (06:03)
[2020-08-14] MEDS ORDERED: Lidocaine 1% w/Epinephrine 1:100K 20 ML VIAL ONE (06:48)
[2020-08-14] MEDS ORDERED: Bupivacaine 0.25% HCL 30 ML VIAL ONE (06:48)
[2020-08-14] MEDS ORDERED: Fentanyl 250 MCG/5 ML VIAL ONE (06:59)
[2020-08-14] MEDS ORDERED: SUGAMMADEX SODIUM 200 MG/2 ML VIAL ONE ×3 (06:59→11:07)
[2020-08-14] MEDS ORDERED: SUGAMMADEX SODIUM 500 MG/5 ML VIAL ONE (07:30)
[2020-08-14] MEDS ORDERED: Rocuronium Bromide 10 MG/ML (10ML VIAL) ONE (07:39)
[2020-08-14] MEDS ORDERED: Labetalol HCl 100 MG/20 ML VIAL ONE (07:39)
[2020-08-14] MEDS ORDERED: PROPOFOL 200 MG/20 ML VIAL ONE (07:39)
[2020-08-14] MEDS ORDERED: Lidocaine 1% PF 5 ML VIAL ONE ×2 (07:39)
[2020-08-14] MEDS ORDERED: Ondansetron PF 4 MG/2 ML Vial ONE (07:39)
[2020-08-14] MEDS ORDERED: Glycopyrrolate 0.2 MG/ML 5 ML SYRINGE ONE (07:39)
[2020-08-14] MEDS ORDERED: Dexamethasone 20 MG/5 ML VIAL ONE (07:39)
[2020-08-14] MEDS ORDERED: Promethazine HCl 25 MG/ML VIAL ONE (09:22)
[2020-08-14] MEDS ORDERED: Fentanyl 100 MCG/2 ML VIAL ONE ×3 (09:36→11:07)
[2020-08-14] MEDS ORDERED: HYDROcodone/Acetaminophen 5/325 mg Tablet ONE (10:55)
== END 2020-08-14 11:50 | disposition home or self-care (01) ==
LOC: SDC 05:50
PROVIDERS: ATTEND Specialist
PROC: 0WUF4JZ Supplement Abdominal Wall with Synthetic Substitute, Percutaneous Endoscopic Approach (ICD-10-PCS; principal; 2020-08-14)
DX: K42.9 Umbilical hernia without obstruction or gangrene (principal); I10 Essential (primary) hypertension; I25.10 Atherosclerotic heart disease of native coronary artery without angina pectoris; F17.210 Nicotine dependence, cigarettes, uncomplicated; F17.290 Nicotine dependence, other tobacco product, uncomplicated; E78.00 Pure hypercholesterolemia, unspecified; E78.5 Hyperlipidemia, unspecified; K21.9 Gastro-esophageal reflux disease without esophagitis; Z79.82 Long term (current) use of aspirin; Z79.899 Other long term (current) drug therapy; Z95.5 Presence of coronary angioplasty implant and graft
CPT/HCPCS: C1781; J0690; J1100; J1885; J2405; J2550; J2704; J3010; S0020

== ENCOUNTER 2020-08-15 15:02 | Observation (INO) | payer BC ==
[2020-08-15] MEDS ORDERED: Ondansetron PF 4 MG/2 ML Vial ONE ×2 (15:49→16:43)
[2020-08-15] MEDS ORDERED: Morphine 4 MG/ML VIAL ONE ×2 (15:49→16:43)
[2020-08-15 15:51] LABS: #Basophils 0.1 thou/uL (0.0-0.2); #Eosinphils 0.2 thou/uL (0.0-0.7); #Lymphocytes 3.6 thou/uL (1.20-3.40); %Basophils 0.4 % (0.0-1.0); %Eosinophils 1.4 % (0.0-10.0); %Monocytes 7.5 % (0.0-10.0); %Neutrophils 62.7 % (42.0-75.0); Mean Corpuscular HGB CONC 34.9 g/dL (32.0-36.0); Mean Corpuscular Hemoglobin 32.1 pg (27.0-31.0); Mean Corpuscular Volume 91.9 fL (78.0-98.0); Mean Platelet Volume 8.2 fL (7.4-10.4); Platelet Count 207 thou/uL (130-400); RBC Distribution Width 12.8 % (11.5-14.5); Red Blood Cell (RBC) Count 4.36 mill/uL (4.70-6.10); White Blood Cell (WBC) Count 12.8 thou/uL (4.8-10.8)
[2020-08-15 16:10] LABS: ALT (SGPT) 17 U/L (8-55); AST (SGOT) 19 U/L (5-34); Albumin 4.1 g/dL (3.5-5.0); Alkaline Phosphatase 92 U/L (40-110); Anion Gap 17 mmol/L (10-20); BUN (Urea Nitrogen) 9 mg/dL (8.4-25.7); Bilirubin, Total 0.3 mg/dL (0.2-1.2); Calc. Creatinine Clearance 0 mL/min (70-130); Calcium 8.9 mg/dL (7.8-10.44); Carbon Dioxide 22 mmol/L (22-29); Chloride 104 mmol/L (98-107); Globulin 3.4 g/dL (2.4-3.5); Glucose 102 mg/dL (70-105); Potassium 4.6 mmol/L (3.5-5.1); Protein, Total 7.5 g/dL (6.0-8.3); Sodium 138 mmol/L (136-145)
[2020-08-15] MEDS ORDERED: Promethazine HCl 25 MG/ML VIAL ONE ×2 (17:46→19:23)
[2020-08-15] MEDS ORDERED: Ondansetron PF 4 MG/2 ML Vial IVP PRN (20:20)
[2020-08-15] MEDS ORDERED: Dextrose 5% in Water 1,000 ML IV PRN (20:20)
[2020-08-15] MEDS ORDERED: Dextrose 50% Abboject 50 ML SYRINGE SLOW IVP PRN (20:20)
[2020-08-15] MEDS ORDERED: traMADol HCl 50 MG TAB PO PRN ×2 (20:38)
[2020-08-15] MEDS: Acetaminophen 500 MG TAB PO SCH (22:20)
[2020-08-15] MEDS: Enoxaparin Sodium 30 MG/0.3 ML SYRINGE SC SCH (22:20)
[2020-08-15 23:15] VITALS: BMI 38.5
[2020-08-16] MEDS: Acetaminophen 500 MG TAB PO SCH ×2 (05:24→08:21)
[2020-08-16 06:54] LABS: Anion Gap 15 mmol/L (10-20); BUN (Urea Nitrogen) 10 mg/dL (8.4-25.7); Calc. Creatinine Clearance 164 mL/min (70-130); Carbon Dioxide 22 mmol/L (22-29); Chloride 103 mmol/L (98-107); Glucose 90 mg/dL (70-105); Potassium 4.3 mmol/L (3.5-5.1); Sodium 136 mmol/L (136-145)
[2020-08-16] MEDS: Enoxaparin Sodium 30 MG/0.3 ML SYRINGE SC SCH (08:23)
[2020-08-16] MEDS ORDERED: Rosuvastatin 20 MG TAB PO SCH (09:00)
[2020-08-16 11:44] VITALS: BP 144/80; TEMP 98.2
== END 2020-08-16 11:45 | disposition home or self-care (01) ==
LOC: ERS 15:02 → SURG B 20:12
PROVIDERS: ADMIT Surgery; ATTEND Surgery
DX: R10.2 Pelvic and perineal pain (principal); R11.2 Nausea with vomiting, unspecified; I10 Essential (primary) hypertension; E78.5 Hyperlipidemia, unspecified; F17.210 Nicotine dependence, cigarettes, uncomplicated; J98.11 Atelectasis; Z79.82 Long term (current) use of aspirin; Z79.899 Other long term (current) drug therapy; Z95.5 Presence of coronary angioplasty implant and graft
CPT/HCPCS: 36415; 74177; 80048; 80053; 83605; 83690; 85025; 96365; 96366; 96372; 96375; 96376; G0378; J1650; J2270; J2405; J2550

== ENCOUNTER 2020-12-26 15:13 | Outpatient (CLI) | payer BC | END 2020-12-26 15:14 | disposition home or self-care (01) | LOC: BICULT 15:13 | PROVIDERS: ATTEND Nurse Practitioner Family | DX: E04.9 Nontoxic goiter, unspecified (principal) | CPT/HCPCS: 76536 ==

== ENCOUNTER 2023-12-22 10:29 | Emergency (ER) | payer BC ==
[2023-12-22] MEDS ORDERED: Oxymetazoline HCl 0.05% (30 ML BOT) ONE (12:35)
[2023-12-22] MEDS ORDERED: methylPREDNISolone Sod Succ/PF 125 MG/2 ML VIAL ONE (12:38)
[2023-12-22] MEDS ORDERED: Dexamethasone 10 MG/ML VIAL ONE (12:42)
== END 2023-12-22 12:55 | disposition home or self-care (01) ==
LOC: ERS 10:29
DX: J01.00 Acute maxillary sinusitis, unspecified (principal); I10 Essential (primary) hypertension
CPT/HCPCS: 71045; 87428; 96372; J1100; J2919